=== PATIENT | female | born 1990 | race American Indian/Alaskan Native ===

== ENCOUNTER 2016-09-15 16:37 | Emergency (ER) | payer OTHER ==
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
[2016-09-16 02:38] VITALS: BP 127/86
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
[2016-09-16] MEDS ORDERED: MOTRIN PO ONE (02:51)
[2016-09-16] MEDS ORDERED: FLEXERIL PO ONE (02:52)
== END 2016-09-16 03:29 | disposition home or self-care (01) ==
LOC: ED 16:37
DX: S70.10XA Contusion of unspecified thigh, initial encounter (principal); G44.319 Acute post-traumatic headache, not intractable; M54.9 Dorsalgia, unspecified; M79.1 Myalgia; E04.1 Nontoxic single thyroid nodule; J45.909 Unspecified asthma, uncomplicated; V49.59XA Passenger injured in collision with other motor vehicles in traffic accident, initial encounter; Y93.9 Activity, unspecified; Y92.9 Unspecified place or not applicable; Y99.9 Unspecified external cause status
CPT/HCPCS: 70450; 72125; 72128; 72131; 81025; 99284